=== PATIENT | male | born 1930 | race Caucasian/White ===

== ENCOUNTER 2017-09-29 15:58 | Inpatient (IN) | payer OTHER, MEDICARE ==
[~2017-09-29] VITALS: Ht 167.6 cm; Wt 66.7 kg
[2017-09-29] MEDS: normal saline 1000ml 1,000 ML IV SCH (16:42)
[2017-09-29 16:46] LABS: HEMATOCRIT 32.5 % (42.0-52.0); HEMOGLOBIN 11.2 g/dl (14.0-17.9); MEAN CORPUSCULAR HEMOGLOBIN 36.6 PG (27.0-31.0); MEAN CORPUSCULAR HGB CONC 34.5 % (33.0-36.5); MEAN CORPUSCULAR VOLUME 106.2 FL (78-98); MEAN PLATELET VOLUME 7.2 FL (7.4-10.4); PLATELET COUNT 142 X10'3 (140-440); RED BLOOD COUNT 3.07 X10'6 (4.70-6.10); RED CELL DISTRIBUTION WIDTH 19.5 % (11.5-14.5); WHITE BLOOD COUNT 8.4 X10'3 (4.5-11.0)
[2017-09-29 16:55] LABS: INR 1.1 INR; PROTHROMBIN TIME 11.1 SECONDS (9.0-12.0)
[2017-09-29 17:07] LABS: ALANINE AMINOTRANSFERASE 17 U/L (12-78); ALBUMIN 3.6 G/DL (3.4-5.0); ALBUMIN/GLOBULIN RATIO 1.1 (1.1-1.5); ALKALINE PHOSPHATASE 52 IU/L (46-116); ANION GAP 12 (8-16); ASPARTATE AMINO TRANSFERASE 10 U/L (10-37); BILIRUBIN,TOTAL 0.7 MG/DL (0.1-1.0); BLOOD UREA NITROGEN 59 MG/DL (7-18); BUN/CREATININE RATIO 8.3 (5.4-32.0); CHLORIDE 104 MMOL/L (99-107); CREATININE 7.12 MG/DL (0.60-1.10); GLUCOSE 104 MG/DL (70-104); POTASSIUM 5.1 MMOL/L (3.5-5.1); SODIUM 141 MMOL/L (135-145); TOTAL CARBON DIOXIDE 25.3 MMOL/L (24-32); TOTAL PROTEIN 6.8 G/DL (6.4-8.2); eGFR 7 ML/MIN
[2017-09-29] MEDS ORDERED: levoFLOXACIN-Levaquin 750MG/D5 150 ML IV STA (17:10)
[2017-09-29 18:02] LABS: ANISOCYTOSIS 2+; HYPOCHROMASIA 1+; PLATELET ESTIMATE NORMAL; SCHISTOCYTES FEW; TOTAL CELLS COUNTED 100
[2017-09-29 18:03] LABS: POLYCHROMASIA FEW; STOMATOCYTES FEW; TEAR DROP CELLS FEW
[2017-09-29 20:13] LABS: CLARITY,URINE Clear (Clear); COLOR,URINE Yellow (Yellow); GLUCOSE, URINE 250 mg/dl (Neg); KETONES,URINE Negative (Neg); LEUKOCYTE ESTERASE ,URINE Negative (Neg); NITRITES, URINE Negative (Neg); OCCULT BLOOD,URINE Negative (Neg); PH,URINE 7.5 (4.8-8.0); PROTEIN,URINE 100 mg/dl (Neg); UROBILINOGEN,URINE 0.2 E.U/dL (0.2-1.0)
[2017-09-29 20:15] LABS: UA COLLECTION TYPE CLN CATCH MIDSTREAM
[2017-09-29] MEDS ORDERED: aztreonam inj. 1,000 MG in normal saline 100ml IV soln 100 ML IV ONE (20:15)
[2017-09-29] MEDS ORDERED: vancomycin/NS 1 GM ADD-VANTAGE 250 ML IV ONE (20:15)
[2017-09-29] MEDS ORDERED: ondansetron/PF 4mg/2ml inj IV PRN (20:20)
[2017-09-29] MEDS ORDERED: mag hydrox/Alum hydrox/simeth 30ml oral suspension PO PRN (20:20)
[2017-09-29] MEDS ORDERED: magnesium hydroxide 30ml (MOM) UD suspension PO PRN (20:20)
[2017-09-29] MEDS ORDERED: HYDROcodone/acetaminophen 10/325mg tab PO PRN (20:20)
[2017-09-29] MEDS ORDERED: HYDROcodone/acetaminophen 5mg/325mg tablet PO PRN (20:20)
[2017-09-29] MEDS ORDERED: acetaminophen 325mg tablet PO PRN ×2 (20:20)
[2017-09-29 20:24] LABS: BACTERIA,URINE NONE SEEN /HPF (Neg); MUCUS STRANDS NONE SEEN /LPF (Neg); RBC,URINE NONE SEEN /HPF (0-2); SQUAMOUS EPITHELIAL CELL,UR NONE SEEN /LPF (FEW); WBC,URINE 0-4 /HPF (0-4)
[2017-09-29] MEDS ORDERED: WATER IV ONE (20:25)
[2017-09-29] MEDS ORDERED: AZTREONAM IV ONE (20:25)
[2017-09-29] MEDS ORDERED: DEXTROSE 5% IV ONE (20:25)
[2017-09-30] MEDS: normal saline 1000ml 1,000 ML IV SCH ×2 (02:05→12:05)
[2017-09-30 05:14] LABS: BASOPHILS % (AUTO) 0.1 % (0-1); EOSINOPHILS # (AUTO) 0.1 X10'3 (0-0.9); EOSINOPHILS % (AUTO) 1.5 % (0-6); HEMOGLOBIN 10.3 g/dl (14.0-17.9); LYMPHOCYTES # (AUTO) 1.1 X10'3 (1.1-4.8); LYMPHOCYTES % (AUTO) 11.3 % (21-51); MEAN CORPUSCULAR HEMOGLOBIN 36.8 PG (27.0-31.0); MEAN CORPUSCULAR HGB CONC 34.2 % (33.0-36.5); MEAN CORPUSCULAR VOLUME 107.6 FL (78-98); MEAN PLATELET VOLUME 7.8 FL (7.4-10.4); MONOCYTES # (AUTO) 0.7 X10'3 (0-0.9); MONOCYTES % (AUTO) 6.8 % (2-12); NEUTROPHILS % (AUTO) 80.3 % (42-75); PLATELET COUNT 129 X10'3 (140-440); RED BLOOD COUNT 2.79 X10'6 (4.70-6.10); RED CELL DISTRIBUTION WIDTH 19.1 % (11.5-14.5); WHITE BLOOD COUNT 9.9 X10'3 (4.5-11.0)
[2017-09-30 05:34] LABS: ALANINE AMINOTRANSFERASE 14 U/L (12-78); ALBUMIN 2.9 G/DL (3.4-5.0); ALBUMIN/GLOBULIN RATIO 0.9 (1.1-1.5); ALKALINE PHOSPHATASE 37 IU/L (46-116); ANION GAP 11 (8-16); ASPARTATE AMINO TRANSFERASE 8 U/L (10-37); BILIRUBIN,TOTAL 0.7 MG/DL (0.1-1.0); BLOOD UREA NITROGEN 63 MG/DL (7-18); BUN/CREATININE RATIO 8.8 (5.4-32.0); CALCIUM 8.6 MG/DL (8.5-10.1); CHLORIDE 107 MMOL/L (99-107); GLUCOSE 137 MG/DL (70-104); MAGNESIUM 1.9 MG/DL (1.5-2.4); PHOSPHORUS 3.4 MG/DL (2.3-4.5); POTASSIUM 4.7 MMOL/L (3.5-5.1); SODIUM 142 MMOL/L (135-145); TOTAL CARBON DIOXIDE 24.2 MMOL/L (24-32); VANCOMYCIN,RANDOM 10.3 UG/ML; eGFR 7 ML/MIN
[2017-09-30] MEDS ORDERED: vancomycin/NS 1 GM ADD-VANTAGE 250 ML IV ONE (07:53)
[2017-09-30] MEDS: aztreonam inj. 500 MG in normal saline 100ml IV soln 100 ML IV SCH ×2 (08:00→20:07)
[2017-09-30] MEDS ORDERED: CARV6.252 PO (11:55)
[2017-09-30] MEDS ORDERED: CALC0.2536 PO (11:55)
[2017-09-30] MEDS ORDERED: VITA1CAP PO (11:55)
[2017-09-30] MEDS ORDERED: CHOL10002 PO (11:55)
[2017-09-30] MEDS ORDERED: SEVE800T8 PO (11:55)
[2017-09-30] MEDS ORDERED: normal saline 1000ml 250 ML IV PRN (12:17)
[2017-09-30] MEDS ORDERED: epoetin 20,000 units/ml inj IV ONE (12:20)
[2017-09-30] MEDS ORDERED: LIDOcaine 1% (10mg/ml) 2ml vial SQ ONE (12:20)
[2017-09-30] MEDS ORDERED: heparin 1,000 units/ml 10ml inj IV ONE (12:20)
[2017-09-30 16:00] VITALS: BP 156/68
[2017-09-30 19:00] VITALS: BP 161/70
[2017-09-30 23:00] VITALS: BP 136/64
[2017-10-01 03:00] VITALS: BP 148/81
[2017-10-01] MEDS ORDERED: VANCOMYCIN LEVEL IV SCH (03:00)
[2017-10-01 05:07] LABS: BASOPHILS % (AUTO) 0.2 % (0-1); EOSINOPHILS # (AUTO) 0.2 X10'3 (0-0.9); EOSINOPHILS % (AUTO) 2.4 % (0-6); HEMATOCRIT 32.3 % (42.0-52.0); HEMOGLOBIN 11.1 g/dl (14.0-17.9); LYMPHOCYTES # (AUTO) 0.8 X10'3 (1.1-4.8); MEAN CORPUSCULAR HEMOGLOBIN 36.9 PG (27.0-31.0); MEAN CORPUSCULAR HGB CONC 34.3 % (33.0-36.5); MEAN CORPUSCULAR VOLUME 107.5 FL (78-98); MEAN PLATELET VOLUME 7.9 FL (7.4-10.4); MONOCYTES # (AUTO) 0.6 X10'3 (0-0.9); MONOCYTES % (AUTO) 6.5 % (2-12); NEUTROPHILS # (AUTO) 7.9 X10'3 (1.8-7.7); NEUTROPHILS % (AUTO) 82.9 % (42-75); PLATELET COUNT 142 X10'3 (140-440); RED BLOOD COUNT 3.01 X10'6 (4.70-6.10); RED CELL DISTRIBUTION WIDTH 19.2 % (11.5-14.5); WHITE BLOOD COUNT 9.5 X10'3 (4.5-11.0)
[2017-10-01 05:28] LABS: ALANINE AMINOTRANSFERASE 13 U/L (12-78); ALBUMIN 2.8 G/DL (3.4-5.0); ALBUMIN/GLOBULIN RATIO 0.8 (1.1-1.5); ALKALINE PHOSPHATASE 43 IU/L (46-116); ANION GAP 8 (8-16); ASPARTATE AMINO TRANSFERASE 9 U/L (10-37); BILIRUBIN,TOTAL 0.9 MG/DL (0.1-1.0); BLOOD UREA NITROGEN 26 MG/DL (7-18); BUN/CREATININE RATIO 6.8 (5.4-32.0); CALCIUM 8.9 MG/DL (8.5-10.1); CHLORIDE 104 MMOL/L (99-107); CREATININE 3.82 MG/DL (0.60-1.10); GLUCOSE 112 MG/DL (70-104); MAGNESIUM 1.7 MG/DL (1.5-2.4); PHOSPHORUS 2.6 MG/DL (2.3-4.5); POTASSIUM 4.4 MMOL/L (3.5-5.1); SODIUM 142 MMOL/L (135-145); TOTAL CARBON DIOXIDE 29.6 MMOL/L (24-32); TOTAL PROTEIN 6.4 G/DL (6.4-8.2); eGFR 15 ML/MIN
[2017-10-01] MEDS ORDERED: vancomycin/NS 1 GM ADD-VANTAGE 250 ML IV PRN (06:00)
[2017-10-01 07:00] VITALS: BP 137/83
[2017-10-01] MEDS: aztreonam inj. 500 MG in normal saline 100ml IV soln 100 ML IV SCH (07:38)
[2017-10-01] MEDS ORDERED: heparin, porcine 5000 units/ml vial SQ SCH (08:00)
[2017-10-01] MEDS ORDERED: vancomycin/NS 1 GM ADD-VANTAGE 250 ML IV ONE (09:00)
[2017-10-01 11:00] VITALS: BP 145/80
== END 2017-10-01 16:25 | disposition home or self-care (01) | DRG 205 ==
LOC: ER 15:59 → ED HOLD 20:17 → EDBEDREQ 09-30 15:16 → PCU 3S 09-30 16:26
PROVIDERS: ATTEND Internal Medicine Critical Care Medicine
PROC: 5A1D70Z Performance of Urinary Filtration, Intermittent, Less than 6 Hours Per Day (ICD-10-PCS; principal; 2017-09-30)
DX: M94.0 Chondrocostal junction syndrome [Tietze] (principal); N18.6 End stage renal disease; J90 Pleural effusion, not elsewhere classified; L29.9 Pruritus, unspecified; I44.0 Atrioventricular block, first degree; Z99.2 Dependence on renal dialysis; Z88.0 Allergy status to penicillin; Z88.1 Allergy status to other antibiotic agents; Z85.820 Personal history of malignant melanoma of skin
CPT/HCPCS: 36415; 71045; 80053; 80202; 81001; 83605; 83735; 83880; 84100; 84484; 85025; 85610; 87040; 87070; 96365; 96366; 99285; A6251; G0257; J0885; J1644; J1956; J3370; J3490; J7030; J7060

== ENCOUNTER 2018-05-19 08:04 | Day surgery (SDC) | payer OTHER, MEDICARE ==
[2018-05-14 14:40] LABS: BASOPHILS % (AUTO) 0.4 % (0-1); EOSINOPHILS # (AUTO) 0.2 X10'3 (0-0.9); LYMPHOCYTES # (AUTO) 1.1 X10'3 (1.1-4.8); LYMPHOCYTES % (AUTO) 19.3 % (21-51); MEAN CORPUSCULAR HEMOGLOBIN 36.4 PG (27.0-31.0); MEAN CORPUSCULAR HGB CONC 33.8 % (33.0-36.5); MEAN CORPUSCULAR VOLUME 107.9 FL (78-98); MEAN PLATELET VOLUME 6.8 FL (7.4-10.4); MONOCYTES # (AUTO) 0.4 X10'3 (0-0.9); MONOCYTES % (AUTO) 7.3 % (2-12); NEUTROPHILS # (AUTO) 3.8 X10'3 (1.8-7.7); PRE OP HEMATOCRIT 34.3 % (42.0-52.0); PRE OP HEMOGLOBIN 11.6 g/dL (14.0-17.9); PRE OP PLATELET COUNT 204 X10'3 (140-440); RED BLOOD COUNT 3.18 X10'6 (4.70-6.10); RED CELL DISTRIBUTION WIDTH 15.9 % (11.5-14.5)
[2018-05-14 14:55] LABS: ALBUMIN 3.7 G/DL (3.4-5.0); ALBUMIN/GLOBULIN RATIO 1.1 (1.1-1.5); ALKALINE PHOSPHATASE 45 IU/L (46-116); BLOOD UREA NITROGEN 45 MG/DL (7-18); BUN/CREATININE RATIO 8.1 (5.4-32.0); CALCIUM 9.2 MG/DL (8.5-10.1); CHLORIDE 103 MMOL/L (99-107); CREATININE 5.58 MG/DL (0.60-1.10); PRE OP ALT 16 U/L (30-65); PRE OP ANION GAP 5 (8-16); PRE OP AST 9 U/L (10-37); PRE OP BILIRUB, TOTAL 0.4 MG/DL (0.0-1.0); PRE OP GLUCOSE 101 MG/DL (70-104); PRE OP SODIUM 143 MMOL/L (135-145); TOTAL CARBON DIOXIDE 34.6 MMOL/L (24-32); eGFR 10 ML/MIN
[2018-05-14 16:49] LABS: CLARITY,URINE CLEAR (Clear); COLOR,URINE YELLOW (Yellow); GLUCOSE, URINE 250 mg/dl (Neg); KETONES,URINE NEGATIVE (Neg); LEUKOCYTE ESTERASE ,URINE NEGATIVE (Neg); NITRITES, URINE NEGATIVE (Neg); OCCULT BLOOD,URINE NEGATIVE (Neg); PROTEIN,URINE 30 mg/dl (Neg); UROBILINOGEN,URINE 0.2 E.U/dL (0.2-1.0)
[2018-05-14 16:50] LABS: UA COLLECTION TYPE NON-SPECIFIED
[2018-05-14 17:08] LABS: BACTERIA,URINE NONE SEEN /HPF (Neg); MUCUS STRANDS NONE SEEN /LPF (Neg); RBC,URINE NONE SEEN /HPF (0-2); SQUAMOUS EPITHELIAL CELL,UR NONE SEEN /LPF (FEW); WBC,URINE NONE SEEN /HPF (0-4)
[2018-05-19] VITALS (9 sets, daily range): BP systolic 121–148; BP diastolic 63–79
[~2018-05-19] VITALS: Ht 170.2 cm; Wt 66.0 kg
[~2018-05-19 08:04] MED LIST: CARV6.252 PO; CHOL10002 PO; DOCUMENT DATE & TIME OF BETA-BLOCKER PO ONE; SEVE800T8 PO; VANCOMYCIN INJ 1000 MG in NORMAL SALINE 250ml IV.SOLN IV ONE; VITA1CAP PO; famotidine 20mg tablet PO ONE; normal saline 1000ml 1,000 ML IV SCH
[2018-05-19] MEDS ORDERED: BUPIVAcaine/PF 2.5mg/ml (0.25%) 10ml vial ONE (09:26)
[2018-05-19] MEDS ORDERED: heparin sodium, porcine/PF 100unit/ml 5ML syringe ONE (09:26)
[2018-05-19] MEDS ORDERED: mupirocin 2% ointment 22GM ONE (09:26)
[2018-05-19 09:41] LABS: ISTAT CREATININE 6.4 mg/dL (0.8-1.3); ISTAT HGB 10.5 g/dl (14.0-18.0); ISTAT IONIZED CALCIUM 1.18 mmol/L (1.03-1.32); ISTAT K 4.4 mmol/L (3.5-5.1); POC BUN/CREATININE RATIO 7.5 (5.4-32.0)
[2018-05-19] MEDS ORDERED: fentaNYL/PF 50MCG/1 ML 2ML syringe ONE (09:46)
[2018-05-19] MEDS ORDERED: etomidate 2mg/ml inj. ONE (09:47)
[2018-05-19] MEDS ORDERED: rocuronium 10mg/ml inj IV ONE (09:47)
[2018-05-19] MEDS ORDERED: midazolam 2 mg/2 ml injection ONE (09:47)
[2018-05-19] MEDS ORDERED: glycopyrrolate 0.2mg/ml inj ONE (09:47)
[2018-05-19] MEDS ORDERED: neostigmine methylsulfate 1 MG/ML 10ml vial ONE (09:47)
[2018-05-19] MEDS ORDERED: dexamethasone sod phosphate 10mg/ml inj ONE (10:20)
[2018-05-19] MEDS ORDERED: sevoflurane 250ml liquid IH ONE (10:20)
[2018-05-19] MEDS ORDERED: ondansetron/PF 4mg/2ml inj ONE (10:35)
[2018-05-19] MEDS ORDERED: ringers solution, lacted 1,000 ML IV SCH (10:48)
[2018-05-19] MEDS ORDERED: ondansetron/PF 4mg/2ml inj IV PRN (10:50)
[2018-05-19] MEDS ORDERED: hydrALAZINE 20mg/ml inj. IV PRN (10:50)
[2018-05-19] MEDS ORDERED: fentaNYL/PF 50MCG/1 ML 2ML syringe IV PRN ×2 (10:50)
[2018-05-19] MEDS ORDERED: enalaprilat dihydrate 2.5mg/2ml vial IV PRN (10:50)
[2018-05-19] MEDS ORDERED: morphine 4 MG/ML inj SYRINge IV PRN ×2 (10:50)
[2018-05-19] MEDS ORDERED: labetalol 5mg/ml 20ml inj. IV ONE (11:02)
[2018-05-19] MEDS ORDERED: hydrALAZINE 20mg/ml inj. IV ONE (11:17)
== END 2018-05-19 12:30 | disposition home or self-care (01) ==
LOC: PAS 08:04
PROVIDERS: ATTEND Surgery
DX: I12.9 Hypertensive chronic kidney disease with stage 1 through stage 4 chronic kidney disease, or unspecified chronic kidney disease (principal); N18.9 Chronic kidney disease, unspecified; J45.909 Unspecified asthma, uncomplicated; M19.90 Unspecified osteoarthritis, unspecified site; Z88.0 Allergy status to penicillin; Z88.2 Allergy status to sulfonamides; Z87.891 Personal history of nicotine dependence; Z98.890 Other specified postprocedural states
CPT/HCPCS: 36415; 49324; 80047; 80053; 81001; 85025; 93005; C1750; J0360; J1100; J1642; J2250; J2270; J2405; J2710; J3010; J3370; J3490; J7030; A6251; A7000; C1758; J7120